=== PATIENT | male | born 1975 | race American Indian/Alaskan Native ===

== ENCOUNTER 2018-04-05 02:27 | Emergency (ER) | payer MEDICAID, OTHER ==
[~2018-04-05] VITALS: Ht 185.4 cm; Wt 110.0 kg
[2018-04-05 02:29] VITALS: BP 193/117
[2018-04-05] MEDS ORDERED: HYDROcodone/acetaminophen 5mg/325mg tablet PO ONE (02:40)
[2018-04-05] MEDS ORDERED: COLC0.6T69 PO (02:41)
[2018-04-06] MEDS ORDERED: HYDR-3965 PO (02:29)
== END 2018-04-05 02:53 | disposition home or self-care (01) ==
LOC: ER 02:28
DX: M10.9 Gout, unspecified (principal); I10 Essential (primary) hypertension; F19.90 Other psychoactive substance use, unspecified, uncomplicated; F12.90 Cannabis use, unspecified, uncomplicated; F15.90 Other stimulant use, unspecified, uncomplicated; Z88.6 Allergy status to analgesic agent; Z79.899 Other long term (current) drug therapy
CPT/HCPCS: 99283

== ENCOUNTER 2018-04-05 21:31 | Emergency (ER) | payer MEDICAID, OTHER ==
[~2018-04-05] VITALS: Ht 185.4 cm; Wt 113.6 kg
[~2018-04-05 21:31] MED LIST: COLC0.6T69 PO
[2018-04-05] MEDS ORDERED: normal saline 1000ML IV soln IV ONE (22:20)
[2018-04-05] MEDS ORDERED: ondansetron/PF 4mg/2ml inj IV ONE (22:25)
[2018-04-05] MEDS ORDERED: morphine 4 MG/ML inj SYRINge IV ONE (22:25)
[2018-04-05] MEDS ORDERED: acetaminophen 325mg tablet PO ONE (22:35)
[2018-04-05 22:56] LABS: BASOPHILS % (AUTO) 0.3 % (0-1); EOSINOPHILS # (AUTO) 0.2 X10'3 (0-0.9); EOSINOPHILS % (AUTO) 1.8 % (0-6); HEMATOCRIT 39.8 % (42.0-52.0); HEMOGLOBIN 13.8 g/dl (14.0-17.9); LYMPHOCYTES # (AUTO) 0.9 X10'3 (1.1-4.8); LYMPHOCYTES % (AUTO) 8.2 % (21-51); MEAN CORPUSCULAR HEMOGLOBIN 30.8 PG (27.0-31.0); MEAN CORPUSCULAR HGB CONC 34.7 % (33.0-36.5); MEAN CORPUSCULAR VOLUME 88.8 FL (78-98); MEAN PLATELET VOLUME 7.9 FL (7.4-10.4); MONOCYTES # (AUTO) 0.9 X10'3 (0-0.9); MONOCYTES % (AUTO) 8.3 % (2-12); NEUTROPHILS # (AUTO) 8.5 X10'3 (1.8-7.7); NEUTROPHILS % (AUTO) 81.4 % (42-75); PLATELET COUNT 189 X10'3 (140-440); RED BLOOD COUNT 4.48 X10'6 (4.70-6.10); RED CELL DISTRIBUTION WIDTH 13.8 % (11.5-14.5); WHITE BLOOD COUNT 10.4 X10'3 (4.5-11.0)
[2018-04-05 23:07] LABS: INR 0.9 INR; PARTIAL THROMBOPLASTIN TIME 27 SECONDS (22-32); PROTHROMBIN TIME 9.5 SECONDS (9.0-12.0)
[2018-04-05 23:11] LABS: ALANINE AMINOTRANSFERASE 113 U/L (12-78); ALBUMIN 3.1 G/DL (3.4-5.0); ALBUMIN/GLOBULIN RATIO 0.8 (1.1-1.5); ALKALINE PHOSPHATASE 97 IU/L (46-116); ANION GAP 8 (8-16); ASPARTATE AMINO TRANSFERASE 61 U/L (10-37); BILIRUBIN,TOTAL 0.8 MG/DL (0.1-1.0); BLOOD UREA NITROGEN 14 MG/DL (7-18); BUN/CREATININE RATIO 11.2 (5.4-32.0); CALCIUM 8.4 MG/DL (8.5-10.1); CHLORIDE 99 MMOL/L (99-107); CREATININE 1.25 MG/DL (0.60-1.10); GLUCOSE 125 MG/DL (70-104); POTASSIUM 3.4 MMOL/L (3.5-5.1); SODIUM 135 MMOL/L (135-145); TOTAL CARBON DIOXIDE 27.8 MMOL/L (24-32); TOTAL PROTEIN 7.2 G/DL (6.4-8.2); eGFR 63 ML/MIN
[2018-04-05 23:14] LABS: MAGNESIUM 2.2 MG/DL (1.5-2.4); TROPONIN I < 0.04 NG/ML (0.0-0.05)
[2018-04-05] MEDS: magnesium 1gm/100ml D5W IVPB 100 ML IV SCH (23:30)
[2018-04-06] MEDS: magnesium 1gm/100ml D5W IVPB 100 ML IV SCH (00:39)
[2018-04-06] MEDS ORDERED: morphine 4 MG/ML inj SYRINge IV ONE (02:20)
[2018-04-06] MEDS ORDERED: HYDR-3965 PO (02:29)
[2018-04-06 02:40] VITALS: BP 141/58
[2018-04-06 04:41] LABS: TOTAL CELLS COUNTED 100
[2018-04-06 04:42] LABS: PLATELET ESTIMATE NORMAL
== END 2018-04-06 02:49 | disposition home or self-care (01) ==
LOC: ER 21:32
DX: R00.2 Palpitations (principal); M10.9 Gout, unspecified; R50.9 Fever, unspecified; I10 Essential (primary) hypertension; F12.90 Cannabis use, unspecified, uncomplicated; F15.90 Other stimulant use, unspecified, uncomplicated; F19.90 Other psychoactive substance use, unspecified, uncomplicated; Z88.6 Allergy status to analgesic agent; Z79.899 Other long term (current) drug therapy
CPT/HCPCS: 36415; 71045; 80053; 83605; 83735; 84145; 84484; 85025; 85610; 85730; 87040; 93005; 96361; 96365; 96375; 96376; 99285; J2270; J2405; J7030

== ENCOUNTER 2018-06-02 11:32 | Emergency (ER) | payer MEDICAID, OTHER ==
[~2018-06-02] VITALS: Ht 185.4 cm; Wt 115.9 kg
[2018-06-02] MEDS ORDERED: acetaminophen 650mg rectal suppository RC STA (12:33)
[2018-06-02] MEDS ORDERED: acetaminophen 325mg tablet PO ONE (12:40)
[2018-06-02 13:08] LABS: BASOPHILS # (AUTO) 0.1 X10'3 (0-0.2); EOSINOPHILS # (AUTO) 0.1 X10'3 (0-0.9); EOSINOPHILS % (AUTO) 1.3 % (0-6); HEMATOCRIT 44.1 % (42.0-52.0); HEMOGLOBIN 14.9 g/dl (14.0-17.9); LYMPHOCYTES % (AUTO) 9.4 % (21-51); MEAN CORPUSCULAR HEMOGLOBIN 29.7 PG (27.0-31.0); MEAN CORPUSCULAR HGB CONC 33.8 % (33.0-36.5); MEAN CORPUSCULAR VOLUME 87.8 FL (78-98); MONOCYTES # (AUTO) 0.8 X10'3 (0-0.9); MONOCYTES % (AUTO) 7.1 % (2-12); NEUTROPHILS # (AUTO) 8.7 X10'3 (1.8-7.7); NEUTROPHILS % (AUTO) 81.2 % (42-75); PLATELET COUNT 185 X10'3 (140-440); RED BLOOD COUNT 5.02 X10'6 (4.70-6.10); RED CELL DISTRIBUTION WIDTH 14.1 % (11.5-14.5); WHITE BLOOD COUNT 10.7 X10'3 (4.5-11.0)
[2018-06-02 13:19] LABS: INR 0.9 INR; PARTIAL THROMBOPLASTIN TIME 29 SECONDS (22-32); PROTHROMBIN TIME 9.4 SECONDS (9.0-12.0)
[2018-06-02 13:28] LABS: ALANINE AMINOTRANSFERASE 94 U/L (12-78); ALBUMIN 3.3 G/DL (3.4-5.0); ALBUMIN/GLOBULIN RATIO 0.7 (1.1-1.5); ALKALINE PHOSPHATASE 115 IU/L (46-116); ANION GAP 9 (8-16); ASPARTATE AMINO TRANSFERASE 56 U/L (10-37); BILIRUBIN,TOTAL 0.8 MG/DL (0.1-1.0); BLOOD UREA NITROGEN 10 MG/DL (7-18); BUN/CREATININE RATIO 9.5 (5.4-32.0); CALCIUM 9.5 MG/DL (8.5-10.1); CHLORIDE 98 MMOL/L (99-107); CREATININE 1.05 MG/DL (0.60-1.10); GLUCOSE 112 MG/DL (70-104); MAGNESIUM 2.1 MG/DL (1.5-2.4); POTASSIUM 4.5 MMOL/L (3.5-5.1); SODIUM 136 MMOL/L (135-145); TOTAL CARBON DIOXIDE 28.8 MMOL/L (24-32); TOTAL PROTEIN 8.3 G/DL (6.4-8.2); eGFR 77 ML/MIN
[2018-06-02] MEDS ORDERED: HYDROcodone/acetaminophen 10/325mg tab PO ONE (14:05)
[2018-06-02] MEDS ORDERED: colchicine 0.6mg tablet PO ONE (14:05)
[2018-06-02] MEDS ORDERED: azithromycin 250mg tablet PO ONE (14:05)
[2018-06-02] MEDS ORDERED: HYDR-4353 PO (14:32)
[2018-06-02] MEDS ORDERED: AZIT250T PO (14:32)
[2018-06-02] MEDS ORDERED: COLC0.6T69 PO (14:32)
[2018-06-02 14:44] VITALS: BP 158/95
== END 2018-06-02 14:56 | disposition home or self-care (01) ==
LOC: ER 11:32
DX: J40 Bronchitis, not specified as acute or chronic (principal); M10.9 Gout, unspecified; I10 Essential (primary) hypertension; F12.90 Cannabis use, unspecified, uncomplicated; F15.90 Other stimulant use, unspecified, uncomplicated; F19.90 Other psychoactive substance use, unspecified, uncomplicated; Z88.8 Allergy status to other drugs, medicaments and biological substances; Z79.2 Long term (current) use of antibiotics; Z79.899 Other long term (current) drug therapy
CPT/HCPCS: 36415; 71045; 80053; 83605; 83735; 83880; 84145; 85025; 85610; 85730; 87040; 93005; 99285

== ENCOUNTER 2019-04-15 07:07 | Emergency (ER) | payer MEDICAID ==
[~2019-04-15] VITALS: Ht 185.4 cm; Wt 133.9 kg
[2019-04-15] MEDS ORDERED: ketorolac trometh inj. 60 MG/2 ML VIAL IM ONE (08:05)
[2019-04-15] MEDS ORDERED: DOXYCYCLINE 100MG CAPSULE PO STA (08:06)
[2019-04-15] MEDS ORDERED: bacitracin 15gm ointment TP ONE (08:10)
[2019-04-15] MEDS ORDERED: TETanus/Pertussis (Acell)/Diphther VAC/PF (Tdap-Adult) 0.5ml syringe IM ONE (08:10)
[2019-04-15] MEDS ORDERED: ondansetron 4mg rapidly disintigrating tab PO ONE (08:10)
[2019-04-15] MEDS ORDERED: cephalexin 250mg capsule PO ONE (08:10)
[2019-04-15] MEDS ORDERED: HYDROcodone/acetaminophen 5mg/325mg tablet PO ONE (10:50)
[2019-04-15 11:27] LABS: ALANINE AMINOTRANSFERASE 94 U/L (12-78); ALBUMIN 3.4 G/DL (3.4-5.0); ALBUMIN/GLOBULIN RATIO 0.8 (1.1-1.5); ALKALINE PHOSPHATASE 111 IU/L (46-116); ANION GAP 11 (8-16); ASPARTATE AMINO TRANSFERASE 52 U/L (10-37); BILIRUBIN,TOTAL 0.6 MG/DL (0.1-1.0); BLOOD UREA NITROGEN 9 MG/DL (7-18); BUN/CREATININE RATIO 8.9 (5.4-32.0); C-REACTIVE PROTEIN 2.55 MG/DL (0.0-0.5); CALCIUM 8.6 MG/DL (8.5-10.1); CHLORIDE 102 MMOL/L (99-107); CREATININE 1.01 MG/DL (0.60-1.10); GLUCOSE 104 MG/DL (70-104); POTASSIUM 3.2 MMOL/L (3.5-5.1); SODIUM 140 MMOL/L (135-145); TOTAL CARBON DIOXIDE 27.2 MMOL/L (24-32); TOTAL PROTEIN 7.7 G/DL (6.4-8.2); eGFR 80 ML/MIN
[2019-04-15 11:30] LABS: BASOPHILS # (AUTO) 0.1 X10'3 (0-0.2); BASOPHILS % (AUTO) 0.6 % (0-1); EOSINOPHILS # (AUTO) 0.2 X10'3 (0-0.9); EOSINOPHILS % (AUTO) 1.7 % (0-6); HEMATOCRIT 39.7 % (42.0-52.0); HEMOGLOBIN 13.7 g/dl (14.0-17.9); LYMPHOCYTES # (AUTO) 1.2 X10'3 (1.1-4.8); LYMPHOCYTES % (AUTO) 10.6 % (21-51); MEAN CORPUSCULAR HEMOGLOBIN 30.4 PG (27.0-31.0); MEAN CORPUSCULAR HGB CONC 34.5 g/dL (33.0-36.5); MEAN CORPUSCULAR VOLUME 88.2 FL (78-98); MEAN PLATELET VOLUME 7.4 FL (7.4-10.4); MONOCYTES # (AUTO) 0.9 X10'3 (0-0.9); NEUTROPHILS % (AUTO) 79.1 % (42-75); PLATELET COUNT 209 X10'3 (140-440); RED CELL DISTRIBUTION WIDTH 14.1 % (11.5-14.5); WHITE BLOOD COUNT 11.4 X10'3 (4.5-11.0)
[2019-04-15] MEDS ORDERED: DOXY100C43 PO (12:25)
[2019-04-15] MEDS ORDERED: CEPH250T PO (12:25)
[2019-04-15] MEDS ORDERED: HYDR-3965 PO (12:25)
[2019-04-15 12:40] VITALS: BP 138/91
[2019-04-15] MEDS ORDERED: ONDA8TAB6 PO (12:40)
== END 2019-04-15 12:55 | disposition home or self-care (01) ==
LOC: ER 07:08
DX: L03.012 Cellulitis of left finger (principal); I10 Essential (primary) hypertension; F12.90 Cannabis use, unspecified, uncomplicated; F15.90 Other stimulant use, unspecified, uncomplicated; Z88.6 Allergy status to analgesic agent; Z79.899 Other long term (current) drug therapy
CPT/HCPCS: 26010; 36415; 73140; 80053; 84145; 85025; 85651; 86140; 96372; 99284; J1885

== ENCOUNTER 2019-04-17 09:10 | Inpatient (IN) | payer MEDICAID ==
[~2019-04-17] VITALS: Ht 185.4 cm; Wt 127.0 kg
[~2019-04-17 09:10] MED LIST changes: +CEPH250T PO; +DOXY100C43 PO; +HYDR-3965 PO; +ONDA8TAB6 PO
[2019-04-17] MEDS ORDERED: vancomycin/NS 1 GM ADD-VANTAGE 250 ML IV ONE (11:55)
[2019-04-17 12:40] LABS: BASOPHILS # (AUTO) 0.1 X10'3 (0-0.2); EOSINOPHILS # (AUTO) 0.2 X10'3 (0-0.9); EOSINOPHILS % (AUTO) 2.9 % (0-6); HEMATOCRIT 41.1 % (42.0-52.0); HEMOGLOBIN 14.2 g/dl (14.0-17.9); LYMPHOCYTES # (AUTO) 1.3 X10'3 (1.1-4.8); LYMPHOCYTES % (AUTO) 16.8 % (21-51); MEAN CORPUSCULAR HEMOGLOBIN 31.4 PG (27.0-31.0); MEAN CORPUSCULAR HGB CONC 34.6 g/dL (33.0-36.5); MEAN CORPUSCULAR VOLUME 90.7 FL (78-98); MEAN PLATELET VOLUME 7.6 FL (7.4-10.4); MONOCYTES # (AUTO) 0.6 X10'3 (0-0.9); MONOCYTES % (AUTO) 7.8 % (2-12); NEUTROPHILS # (AUTO) 5.6 X10'3 (1.8-7.7); NEUTROPHILS % (AUTO) 71.5 % (42-75); PLATELET COUNT 199 X10'3 (140-440); RED BLOOD COUNT 4.53 X10'6 (4.70-6.10); WHITE BLOOD COUNT 7.8 X10'3 (4.5-11.0)
[2019-04-17 12:54] LABS: ALANINE AMINOTRANSFERASE 93 U/L (12-78); ALBUMIN 3.2 G/DL (3.4-5.0); ALBUMIN/GLOBULIN RATIO 0.7 (1.1-1.5); ALKALINE PHOSPHATASE 117 IU/L (46-116); ANION GAP 11 (8-16); ASPARTATE AMINO TRANSFERASE 60 U/L (10-37); BILIRUBIN,TOTAL 0.3 MG/DL (0.1-1.0); BLOOD UREA NITROGEN 11 MG/DL (7-18); BUN/CREATININE RATIO 10.1 (5.4-32.0); CALCIUM 8.4 MG/DL (8.5-10.1); CHLORIDE 104 MMOL/L (99-107); CREATININE 1.09 MG/DL (0.60-1.10); GLUCOSE 126 MG/DL (70-104); POTASSIUM 3.5 MMOL/L (3.5-5.1); SODIUM 141 MMOL/L (135-145); TOTAL CARBON DIOXIDE 26.3 MMOL/L (24-32); TOTAL PROTEIN 7.5 G/DL (6.4-8.2); eGFR 73 ML/MIN
--- NOTE | 2019-04-17 13:16 | NUR ---
PAGED PICC RN TO START AN IV.
[2019-04-17 13:55] LABS: TOTAL CELLS COUNTED 100
[2019-04-17] MEDS ORDERED: CEPH500C2 PO (13:55)
[2019-04-17] MEDS ORDERED: ONDA8TAB6 PO (13:55)
[2019-04-17] MEDS ORDERED: LISI-600 PO (13:55)
[2019-04-17] MEDS ORDERED: DASA100T PO (13:55)
[2019-04-17] MEDS ORDERED: DOXY100C43 PO (13:55)
[2019-04-17 13:56] LABS: PLATELET ESTIMATE NORMAL
[2019-04-17] MEDS ORDERED: potassium CL 10mEq/100ml bag 100 ML IV PRN ×2 (14:00)
[2019-04-17] MEDS ORDERED: magnesium 2GM in 50ml NS 50 ML IV PRN (14:00)
[2019-04-17] MEDS ORDERED: normal saline 1000ml 1,000 ML IV SCH (14:00)
[2019-04-17] MEDS ORDERED: potassium Cl 20 mEq SR tablet PO PRN (14:00)
[2019-04-17] MEDS ORDERED: magnesium 4gm in 100ml NS 100 ML IV PRN (14:00)
[2019-04-17] MEDS ORDERED: ondansetron/PF 4mg/2ml inj IV PRN (14:00)
[2019-04-17] MEDS ORDERED: magnesium Cl slow-release 64mg tablet PO PRN (14:00)
[2019-04-17] MEDS ORDERED: acetaminophen 325mg tablet PO PRN (14:00)
[2019-04-17] MEDS: HYDROcodone/acetaminophen 5mg/325mg tablet PO PRN ×2 (14:52→20:22)
[2019-04-17] MEDS: docusate sod 100mg capsule PO SCH (20:22)
[2019-04-17 21:00] VITALS: BP 173/95
--- NOTE | 2019-04-17 21:44 | NUR ---
pt smokes marijuana daily pt lost father in law 2 months ago and states "he was close to him" Addendum: 04/17/19 at 2157 by Beverly Jett RN Amended: Links added.
[2019-04-17 22:11] VITALS: BP 163/96
[2019-04-17] MEDS: piperacillin/tazo 3.375gm/50ml 50 ML IV SCH (23:58)
[2019-04-18 03:22] LABS: ANION GAP 10 (8-16); BLOOD UREA NITROGEN 11 MG/DL (7-18); CALCIUM 8.4 MG/DL (8.5-10.1); CHLORIDE 106 MMOL/L (99-107); GLUCOSE 126 MG/DL (70-104); POTASSIUM 3.4 MMOL/L (3.5-5.1); SODIUM 142 MMOL/L (135-145); TOTAL CARBON DIOXIDE 25.8 MMOL/L (24-32); eGFR 72 ML/MIN
[2019-04-18] MEDS: potassium Cl 20 mEq SR tablet PO PRN ×3 (03:43→13:19)
[2019-04-18 06:00] VITALS: BP 150/96
--- NOTE | 2019-04-18 06:00 | NUR ---
In agreement with and have reviewed all charting and med pass completed by Beverly LUNDBERG for the shift time frame.
--- NOTE | 2019-04-18 06:15 | NUR ---
Patient in room [facility]TH[facility] 4022. I have received report from [facility] and had the opportunity to ask questions and assume patient care.
[2019-04-18 06:16] LABS: BASOPHILS % (AUTO) 0.4 % (0-1); EOSINOPHILS # (AUTO) 0.2 X10'3 (0-0.9); EOSINOPHILS % (AUTO) 3.2 % (0-6); HEMATOCRIT 39.8 % (42.0-52.0); HEMOGLOBIN 13.9 g/dl (14.0-17.9); LYMPHOCYTES # (AUTO) 1.6 X10'3 (1.1-4.8); LYMPHOCYTES % (AUTO) 21.4 % (21-51); MEAN CORPUSCULAR HEMOGLOBIN 31.1 PG (27.0-31.0); MEAN CORPUSCULAR VOLUME 88.9 FL (78-98); MONOCYTES # (AUTO) 0.6 X10'3 (0-0.9); MONOCYTES % (AUTO) 7.7 % (2-12); NEUTROPHILS # (AUTO) 4.9 X10'3 (1.8-7.7); NEUTROPHILS % (AUTO) 67.3 % (42-75); PLATELET COUNT 202 X10'3 (140-440); RED BLOOD COUNT 4.48 X10'6 (4.70-6.10); RED CELL DISTRIBUTION WIDTH 13.6 % (11.5-14.5); WHITE BLOOD COUNT 7.2 X10'3 (4.5-11.0)
--- NOTE | 2019-04-18 06:24 | NUR ---
Gave report to Kimberly LUNDBERG.
[2019-04-18] MEDS: HYDROcodone/acetaminophen 5mg/325mg tablet PO PRN ×3 (06:25→17:20)
[2019-04-18] MEDS: K and/or MAG REPLACEMENT MC SCH (08:00)
[2019-04-18] MEDS: docusate sod 100mg capsule PO SCH ×2 (08:57→20:12)
[2019-04-18] MEDS: piperacillin/tazo 3.375gm/50ml 50 ML IV SCH ×2 (08:57→15:36)
[2019-04-18 09:08] LABS: NUCLEATED RED BLOOD CELLS 1 /100WBC (0-0); TOTAL CELLS COUNTED 100
[2019-04-18 09:10] LABS: PLATELET ESTIMATE NORMAL; POLYCHROMASIA 1+
[2019-04-18 10:00] VITALS: BP 167/100
[2019-04-18] MEDS ORDERED: pneumococcal 23-VAL P-sac vacc 25 mcg/0.5ml vial IMVAC ONE (10:00)
[2019-04-18] MEDS ORDERED: non-formulary drug (Ondansetron Hcl (Zofran) 8 MG) PO SCH (13:00)
--- NOTE | 2019-04-18 18:15 | NUR ---
Problems reprioritized. Patient report given, questions answered & plan of care reviewed with Bill Meek
[2019-04-18] MEDS: lactobacillus rhamnosus 10,000 MMU CELLS/CAPSULE PO SCH (20:12)
[2019-04-19] MEDS ORDERED: VANCOMYCIN LEVEL IV ONE (01:30)
[2019-04-19] MEDS: piperacillin/tazo 3.375gm/50ml 50 ML IV SCH ×2 (02:04→10:52)
[2019-04-19 02:29] LABS: BASOPHILS # (AUTO) 0.1 X10'3 (0-0.2); BASOPHILS % (AUTO) 1.3 % (0-1); EOSINOPHILS # (AUTO) 0.3 X10'3 (0-0.9); EOSINOPHILS % (AUTO) 2.8 % (0-6); HEMATOCRIT 40.7 % (42.0-52.0); HEMOGLOBIN 14.1 g/dl (14.0-17.9); LYMPHOCYTES # (AUTO) 2.7 X10'3 (1.1-4.8); LYMPHOCYTES % (AUTO) 26.4 % (21-51); MEAN CORPUSCULAR HEMOGLOBIN 31.6 PG (27.0-31.0); MEAN CORPUSCULAR HGB CONC 34.8 g/dL (33.0-36.5); MEAN PLATELET VOLUME 7.7 FL (7.4-10.4); MONOCYTES # (AUTO) 0.8 X10'3 (0-0.9); MONOCYTES % (AUTO) 7.8 % (2-12); NEUTROPHILS # (AUTO) 6.2 X10'3 (1.8-7.7); NEUTROPHILS % (AUTO) 61.7 % (42-75); PLATELET COUNT 176 X10'3 (140-440); RED BLOOD COUNT 4.47 X10'6 (4.70-6.10); RED CELL DISTRIBUTION WIDTH 13.9 % (11.5-14.5); WHITE BLOOD COUNT 10.1 X10'3 (4.5-11.0)
[2019-04-19 02:46] LABS: ALBUMIN 2.8 G/DL (3.4-5.0); ANION GAP 7 (8-16); BLOOD UREA NITROGEN 13 MG/DL (7-18); BUN/CREATININE RATIO 11.7 (5.4-32.0); CALCIUM 8.5 MG/DL (8.5-10.1); CHLORIDE 109 MMOL/L (99-107); CREATININE 1.11 MG/DL (0.60-1.10); GLUCOSE 103 MG/DL (70-104); MAGNESIUM 2.2 MG/DL (1.5-2.4); POTASSIUM 3.7 MMOL/L (3.5-5.1); SODIUM 144 MMOL/L (135-145); TOTAL CARBON DIOXIDE 28.4 MMOL/L (24-32); VANCOMYCIN,TROUGH 19.2 UG/ML (6.0-14.0); eGFR 72 ML/MIN
[2019-04-19] MEDS: HYDROcodone/acetaminophen 5mg/325mg tablet PO PRN ×2 (04:22→11:08)
[2019-04-19 06:00] VITALS: BP 139/90
[2019-04-19] MEDS: K and/or MAG REPLACEMENT MC SCH (08:00)
[2019-04-19] MEDS ORDERED: SPRYCEL 100 MG PO SCH (08:00)
[2019-04-19] MEDS ORDERED: lisinopril 20mg tablet PO SCH (08:00)
[2019-04-19] MEDS ORDERED: DASATINIB PO SCH (08:00)
[2019-04-19 10:00] VITALS: BP 137/91
[2019-04-19] MEDS: lactobacillus rhamnosus 10,000 MMU CELLS/CAPSULE PO SCH (10:52)
[2019-04-19] MEDS: docusate sod 100mg capsule PO SCH (10:52)
[2019-04-19 10:53] VITALS: BP_SYST 137
[2019-04-19] MEDS ORDERED: HYDR-4383 PO (11:45)
[2019-04-19] MEDS ORDERED: CLIN-5 PO (11:49)
--- NOTE | 2019-04-19 13:20 | NUR ---
Received discharge orders from Dr. Cardoza. Instructed pt and his on how to provide wound care to pts finger per Dr. Cardoza and to change dressing daily. S/P Left finger I & D. Irrigated finger left hand with SNS. Applied Betadine to finger and allowed to dry. Antibiotic ointment applied to finger. Applied Xeroform Gauze to open incision to finger left hand. Covered with Ernie wrap and applied tape. Gave pt a few supplies to take home to provide daily wound care. present and instructed on wound care. Answered appropriate questions. IV dc'd RFA x2. No redness/swelling at insertion sites. Applied bandaid with folded 2x2 with slight pressure. Tolerated well. Called in RX for Clindamycin to [facility] on [facility] per pts request. RX for [facility] written by and copied. Placed copy in pts chart. Gave original to pt and instructed to take to pharmacy to fill. Pt discharged via w/c to private vehicle.
== END 2019-04-19 13:32 | disposition home or self-care (01) | DRG 383 ==
LOC: ER 09:11 → ED HOLD 15:40 → EDBEDREQ 19:45 → ORTHO 4S 19:57
PROVIDERS: ADMIT Internal Medicine; ATTEND Internal Medicine
DX: L03.012 Cellulitis of left finger (principal); C92.10 Chronic myeloid leukemia, BCR/ABL-positive, not having achieved remission; B18.2 Chronic viral hepatitis C; F12.90 Cannabis use, unspecified, uncomplicated; F15.90 Other stimulant use, unspecified, uncomplicated; F17.200 Nicotine dependence, unspecified, uncomplicated; I10 Essential (primary) hypertension; M10.9 Gout, unspecified; Z85.72 Personal history of non-Hodgkin lymphomas; Z28.21 Immunization not carried out because of patient refusal; Z88.5 Allergy status to narcotic agent; Z79.899 Other long term (current) drug therapy
CPT/HCPCS: 36415; 73140; 80048; 80053; 80202; 83735; 85025; 87070; 87077; 87081; 87186; 96365; 96375; 99285; G0378; J2405; J2543; J3370; J7030

== ENCOUNTER 2019-08-03 12:33 | Emergency (ER) | payer MEDICAID, OTHER ==
[~2019-08-03] VITALS: Ht 185.4 cm; Wt 138.9 kg
[~2019-08-03 12:33] MED LIST changes: -CEPH250T PO; +CLIN-5 PO; -COLC0.6T69 PO; +DASA100T PO; -DOXY100C43 PO; -HYDR-3965 PO; +HYDR-4383 PO; +LISI-600 PO
[2019-08-03 12:48] VITALS: BP 184/124
== END 2019-08-03 13:35 | disposition home or self-care (01) ==
LOC: ER 12:34
DX: S06.0X0A Concussion without loss of consciousness, initial encounter (principal); S60.051A Contusion of right little finger without damage to nail, initial encounter; F12.90 Cannabis use, unspecified, uncomplicated; F15.90 Other stimulant use, unspecified, uncomplicated; F17.200 Nicotine dependence, unspecified, uncomplicated; I10 Essential (primary) hypertension; M10.9 Gout, unspecified; Z88.6 Allergy status to analgesic agent; Z79.899 Other long term (current) drug therapy; Z92.21 Personal history of antineoplastic chemotherapy; W18.30XA Fall on same level, unspecified, initial encounter; Y93.89 Activity, other specified; Y92.89 Other specified places as the place of occurrence of the external cause; Y99.9 Unspecified external cause status
CPT/HCPCS: 29130; 73140; 99284

== ENCOUNTER 2020-07-20 02:14 | Emergency (ER) | payer MEDICAID, OTHER ==
[~2020-07-20] VITALS: Ht 185.4 cm; Wt 131.8 kg
[2020-07-20] MEDS ORDERED: nitroGLYCERIN 0.4mg SUBLingual tab SL PRN (02:30)
[2020-07-20 03:09] LABS: LYMPHOCYTES # (AUTO) 1.8 X10'3 (1.1-4.8); RED CELL DISTRIBUTION WIDTH 18.1 % (11.5-14.5)
[2020-07-20] MEDS ORDERED: LISI-600 PO (03:10)
[2020-07-20] MEDS ORDERED: IMAT400T6 PO (03:10)
[2020-07-20] MEDS ORDERED: METO50TA7 PO (03:10)
[2020-07-20] MEDS ORDERED: ALLO100T PO (03:10)
[2020-07-20 03:11] LABS: BASOPHILS # (AUTO) 0.2 X10'3 (0-0.2); BASOPHILS % (AUTO) 0.8 % (0-1); EOSINOPHILS # (AUTO) 0.2 X10'3 (0-0.9); EOSINOPHILS % (AUTO) 0.7 % (0-6); HEMATOCRIT 42.8 % (42.0-52.0); HEMOGLOBIN 14.2 g/dl (14.0-17.9); LYMPHOCYTES % (AUTO) 7.4 % (21-51); MEAN CORPUSCULAR HEMOGLOBIN 30.5 PG (27.0-31.0); MEAN CORPUSCULAR HGB CONC 33.2 g/dL (33.0-36.5); MEAN CORPUSCULAR VOLUME 91.8 FL (78-98); MONOCYTES # (AUTO) 2.6 X10'3 (0-0.9); MONOCYTES % (AUTO) 10.8 % (2-12); NEUTROPHILS # (AUTO) 19.2 X10'3 (1.8-7.7); NEUTROPHILS % (AUTO) 80.3 % (42-75); PLATELET COUNT 153 X10'3 (140-440); RED BLOOD COUNT 4.66 X10'6 (4.70-6.10); WHITE BLOOD COUNT 23.9 X10'3 (4.5-11.0)
[2020-07-20 03:40] LABS: PARTIAL THROMBOPLASTIN TIME 28 SECONDS (22-32)
[2020-07-20 04:00] LABS: ANISOCYTOSIS 2+; PLATELET ESTIMATE NORMAL; TOTAL CELLS COUNTED 100
[2020-07-20 04:04] LABS: ALANINE AMINOTRANSFERASE 135 U/L (12-78); ALBUMIN 3.8 G/DL (3.4-5.0); ALBUMIN/GLOBULIN RATIO 0.8 (1.1-1.5); ALKALINE PHOSPHATASE 99 IU/L (46-116); ANION GAP 9 (8-16); ASPARTATE AMINO TRANSFERASE 92 U/L (10-37); BILIRUBIN,TOTAL 0.6 MG/DL (0.1-1.0); BLOOD UREA NITROGEN 18 MG/DL (7-18); BUN/CREATININE RATIO 15.1 (5.4-32.0); CALCIUM 8.9 MG/DL (8.5-10.1); CHLORIDE 105 MMOL/L (99-107); CREATININE 1.19 MG/DL (0.60-1.10); GLUCOSE 97 MG/DL (70-104); POTASSIUM 4.3 MMOL/L (3.5-5.1); SODIUM 138 MMOL/L (135-145); TOTAL CARBON DIOXIDE 24.4 MMOL/L (24-32); TOTAL PROTEIN 8.4 G/DL (6.4-8.2); eGFR 66 ML/MIN
[2020-07-20] MEDS ORDERED: normal saline 1000ML IV soln IV ONE (04:05)
[2020-07-20] MEDS ORDERED: acetaminophen 325mg tablet PO ONE (04:05)
[2020-07-20] MEDS ORDERED: CefTRIAXone 2gm/D5W 50ml BAG 50 ML IV ONE (04:05)
[2020-07-20] MEDS ORDERED: iohexol 350MG/ML 100ml bottle IV ONE (04:13)
[2020-07-20 04:15] LABS: C-REACTIVE PROTEIN 0.63 MG/DL (0.0-0.5); FERRITIN 152 NG/ML (26-388); LACTATE DEHYDROGENASE 466 U/L (85-227); MAGNESIUM 2.2 MG/DL (1.5-2.4)
[2020-07-20 04:40] LABS: CLARITY,URINE CLEAR (Clear); COLOR,URINE YELLOW (Yellow); GLUCOSE, URINE NEGATIVE (Neg); KETONES,URINE NEGATIVE (Neg); LEUKOCYTE ESTERASE ,URINE NEGATIVE (Neg); NITRITES, URINE NEGATIVE (Neg); OCCULT BLOOD,URINE NEGATIVE (Neg); PROTEIN,URINE NEGATIVE (Neg); UROBILINOGEN,URINE 0.2 E.U/dL (0.2-1.0)
[2020-07-20 04:41] LABS: UA COLLECTION TYPE CLN CATCH MIDSTREAM
[2020-07-20] MEDS ORDERED: dexamethasone sod phosphate 10mg/ml inj IV STA (05:11)
[2020-07-20 06:28] VITALS: BP 132/92
== END 2020-07-20 08:29 | disposition home or self-care (01) ==
LOC: EEVIPCON 02:15 → ER 02:15
DX: U07.1 COVID-19 (principal); C95.90 Leukemia, unspecified not having achieved remission; J12.89 Other viral pneumonia; J10.1 Influenza due to other identified influenza virus with other respiratory manifestations; I10 Essential (primary) hypertension; F12.90 Cannabis use, unspecified, uncomplicated; F15.90 Other stimulant use, unspecified, uncomplicated; M10.9 Gout, unspecified; Z86.19 Personal history of other infectious and parasitic diseases; Z88.6 Allergy status to analgesic agent; Z79.899 Other long term (current) drug therapy
CPT/HCPCS: 36415; 71045; 71275; 80053; 81003; 82728; 83605; 83615; 83735; 83880; 84145; 84484; 85007; 85025; 85379; 85384; 85610; 85730; 86140; 87040; 87502; 87503; 87635; 93005; 96365; 96366; 96375; 99285; C9803; J0696; J1100; J7030; Q9967